=== PATIENT | male | born 1975 | race Caucasian/White ===

== ENCOUNTER 2016-11-27 00:28 | Emergency (ER) | payer MEDICAID ==
[2016-11-27] MEDS ORDERED: Sodium Chloride 0.9% 1,000 ML IV ONE (01:49)
[2016-11-27 01:54] LABS: RBC URINE 1734 /hpf (0-3); URINE BILIRUBIN NEGATIVE (NEGATIVE); URINE BLOOD 3+ (NEGATIVE); URINE COLOR Yellow (YELLOW); URINE GLUCOSE (UA) NORMAL (Normal); URINE KETONE NEGATIVE (NEGATIVE); URINE LEUKOCYTE ESTERASE TRACE Leu/uL (Negative); URINE PROTEIN 1+ mg/dL (NEGATIVE); WBC URINE 6 /hpf (0-5)
[2016-11-27] MEDS ORDERED: Sodium Chloride 0.9% 1,000 ML ONE (01:57)
[2016-11-27 02:26] LABS: BASO % 0.2 % (0.0-2.0); EOS # 0.2 K/uL (0.0-0.7); EOS % 1.5 % (0.0-4.0); HEMATOCRIT 41.9 % (35.0-51.0); LYMPH # 1.8 K/uL (1.0-4.3); MEAN CELL VOLUME 81.1 fL (80.0-94.0); MEAN CORPUSCULAR HEMOGLOBIN 27.3 pg (27.0-31.0); MEAN CORPUSCULAR HGB CONC 33.6 g/dL (33.0-37.0); MEAN PLATELET VOLUME 9.1 fL (7.2-11.7); MONO # 0.6 K/uL (0.0-0.8); MONO % 6.1 % (0.0-10.0); NRBC % 0.1 % (0.0-2.0); RED CELL DISTRIBUTION WIDTH 13.7 % (11.5-14.5); WHITE BLOOD COUNT 10.6 K/uL (4.8-10.8)
[2016-11-27 02:29] LABS: CHLORIDE 103 mmol/L (98-107)
[2016-11-27 02:30] LABS: POTASSIUM 3.8 mmol/L (3.6-5.2); SODIUM 141 mmol/L (132-148)
[2016-11-27 02:32] LABS: ALB/GLOB RATIO 1.2 (1.0-2.1); ALKALINE PHOSPHATASE 59 U/L (38-126); AST/SGOT 25 U/L (17-59); BILIRUBIN,TOTAL 1.1 mg/dL (0.2-1.3); CARBON DIOXIDE 27 mmol/L (22-30); GFR AFRICAN-AMERICAN > 60; TOTAL PROTEIN 7.2 g/dL (6.3-8.3)
[2016-11-27 02:33] LABS: ALT/SGPT 33 U/L (21-72); BLOOD UREA NITROGEN 13 mg/dL (9-20); CALCIUM 8.8 mg/dl (8.6-10.4); GLUCOSE,RANDOM 106 mg/dL (75-110)
--- NOTE | 2016-11-27 03:22 | C.PDOC ---
History Of Present Illness A 41 y/o male c/o intermittent right flank pain for a week. Pt notes that he has intermittent episodes of hematuria that are similar to past episodes due to his Hx of kidney stones. Pt denies fever, chills, abdominal pain, nausea, vomiting, incontinence, or any other complaints. Time Seen by Provider: 11/27/16 01:27 Chief Complaint (Nursing): Back Pain History Per: Patient History/Exam Limitations: no limitations Onset/Duration Of Symptoms: Days, Intermittent Episodes Current Symptoms Are (Timing): Still Present Severity: Mild Recent travel outside of the [place]: No Additional History Per: Patient Past Medical History Reviewed: Historical Data, Nursing Documentation, Vital Signs Vital Signs: Last Vital Signs Temp 98 F 11/27/16 03:49 Pulse 72 11/27/16 03:49 Resp 20 11/27/16 03:49 BP 131/81 11/27/16 03:49 Pulse Ox 97 11/27/16 03:58 Family History: States: Unknown Family Hx - Social History Hx Alcohol Use: No Hx Substance Use: No - Immunization History Hx Tetanus Toxoid Vaccination: No Hx Influenza Vaccination: No Hx Pneumococcal Vaccination: No Review Of Systems Constitutional: Negative for: Fever, Chills Gastrointestinal: Negative for: Nausea, Vomiting, Abdominal Pain Genitourinary: Positive for: Other (Right flank pain). Negative for: Incontinence Physical Exam - Physical Exam Appears: Non-toxic, No Acute Distress Skin: Warm, Dry Head: Atraumatic, Normacephalic Eye(s): bilateral: Normal Inspection Cardiovascular: Rhythm Regular, No Murmur Respiratory: Normal Breath Sounds, No Accessory Muscle Use, No Wheezing Gastrointestinal/Abdominal: Soft, Tenderness (Right mid abdominal tenderness), No Guarding, No Rebound Back: CVA Tenderness (Right), No Paraspinal Tenderness Extremity: No Pedal Edema, Capillary Refill (<2secs), No Deformity, No Swelling Neurological/Psych: Oriented x3, Normal Speech, Normal Cognition, Other (no focal deficit) ED Course And Treatment - Laboratory Results Result Diagrams: 11/27/16 02:05 11/27/16 02:05 O2 Sat by Pulse Oximetry: 97 (RA) Pulse Ox Interpretation: Normal - CT Scan/US CT Abd/pel w/o contrast Other Rad Studies (CT/US): Interpreted By Me, Read By Radiologist CT/US Interpretation: IMPRESSION: 1. RIGHT distal ureteral calculus with mild- to-moderate hydroureteronephrosis. 2. LEFT ureteropelvic calculus with mild-to- moderate hydronephrosis. 3. Incidental/non-acute findings are described above. Progress Note: Impression: 41 y/o male c/o right flank pain for a week. Plans: IV fluids, Toradol IV, and CT Abd/Pel, Reassess. On reassessment, patient is resting comfortably, and is in no acute distress. Tolerated PO fluids. Patient is improving with his right flank pain and was instructed to follow up with PMD in 1-2 days for further evaluation. Reevaluation Time: 03:42 Reassessment Condition: Improved Disposition Counseled Patient/Family Regarding: Diagnosis, Need For Followup, Rx Given - Disposition Referrals: Dane Mccullough MD [Staff Provider] - Disposition: HOME/ ROUTINE Disposition Time: 03:42 Condition: STABLE Additional Instructions: Please follow up with PMD / Urologist Use strainer when urinating Take meds as directed Return to ER if worse Prescriptions: Ibuprofen [Motrin] 600 mg PO Q6H #24 tab Tamsulosin [Flomax] 0.4 mg PO DAILY #6 cap Instructions: Renal Colic (ED) Forms: Work Excuse - Clinical Impression Clinical Impression: Renal colic, Bilateral kidney stones - Scribe Statement The provider has reviewed the documentation as recorded by the Shellyibsisi ryder All medical record entries made by the Shellyibe were at my direction and personally dictated by me. I have reviewed the chart and agree that the record accurately reflects my personal performance of the history, physical exam, medical decision making, and the department course for this patient. I have also personally directed, reviewed, and agree with the discharge instructions and disposition.
--- NOTE | 2016-11-27 03:29 | CT ---
EXAM: CT Abdomen and Pelvis Without Intravenous Contrast CLINICAL HISTORY: 41 years old, male; Pain; Abdominal pain; Flank; Right; Additional info: Right flank pain TECHNIQUE: Axial computed tomography images of the abdomen and pelvis without intravenous contrast. This CT exam was performed using one or more of the following dose reduction techniques: automated exposure control, adjustment of the mA and/or kV according to patient size, and/or use of iterative reconstruction technique. Coronal and sagittal reformatted images were created and reviewed. COMPARISON: No relevant prior studies available. FINDINGS: Lower thorax: Minimal atelectasis/scarring. ABDOMEN: Liver: Unremarkable. Gallbladder and bile ducts: No calcified stones. No ductal dilation. Pancreas: Unremarkable. No ductal dilation. Spleen: No splenomegaly. Adrenals: No mass. Kidneys and ureters: Faint punctate calculus within RIGHT kidney. [id number] pelvocaliectasis of RIGHT kidney. Mild to moderately dilated RIGHT ureter. 0.3 x 0.2 x 0.3 cm calculus within RIGHT distal ureter. [id number] pelvocaliectasis of LEFT kidney. 1.4 x 1.0 x 0.7 cm calculus at LEFT ureteropelvic junction. Stomach and bowel: Underdistention of LEFT colon. No definite mural thickening. No obstruction. Appendix: No findings to suggest acute appendicitis. PELVIS: Bladder: Unremarkable. No stones. Reproductive: Unremarkable as visualized. ABDOMEN and PELVIS: Intraperitoneal space: No significant fluid collection. No free air. Bones/joints: No acute fracture. Soft tissues: Unremarkable. Vasculature: Unremarkable. No aneurysm. Lymph nodes: No pathologically enlarged lymph nodes. IMPRESSION: 1. RIGHT distal ureteral calculus with [id number] hydroureteronephrosis. 2. LEFT ureteropelvic calculus with [id number] hydronephrosis. 3. Incidental/non-acute findings are described above.
[2016-11-27 03:54] VITALS: BP 131/81; PULSE 72; RESP 20; TEMP 98
[2016-11-27 03:58] VITALS: O2SAT 97
== END 2016-11-27 03:54 | disposition home or self-care (01) ==
LOC: C.ER 00:28
DX: N13.2 Hydronephrosis with renal and ureteral calculous obstruction (principal); Z87.442 Personal history of urinary calculi
CPT/HCPCS: 74176; 80053; 81001; 83690; 85025; 96361; 96374; 99285; J1885; J7040